=== PATIENT | female | born 1975 ===

== ENCOUNTER 2017-10-31 20:59 | Emergency (ER) | payer OTHER ==
[2017-10-31 21:44] VITALS: BMI 27.4
[2017-10-31 21:49] VITALS: TEMP 98.7
[2017-10-31 21:51] VITALS: BP 142/94; O2SAT 98
--- NOTE | 2017-10-31 22:22 | ED PDOC ---
Arrival/HPI - General Chief Complaint: Trauma Time Seen by Provider: 10/31/17 22:04 Historian: Patient - History of Present Illness Narrative History of Present Illness (Text): 10/31/17 22:16 A 41 year old female, with no significant past medical history, present to the emergency department for further evaluation s/p mechanical fall. Patient states that she [place] into [place] after falling through the cellar doors on the sidewalk about 1 hour ago. She notes that she hit her nose and left correa. The patient denies any loss of consciousness. Patient reports that she is not on any blood thinners. Patient has a cut across her nose and left eyebrow. Patient complaints of a mild headache. She notes that her last tetanus shot was 3 years ago. The patient denies fevers, chills, dizziness, sore throat, cough, chest pain, shortness of breath, dyspnea on exertion, abdominal pain, nausea, vomiting, diarrhea, neck/back pain, urinary/bowel changes or any other complaint. PMD: Dr. Zulma Hyman Time/Duration: 1 hour Symptom Onset: Sudden Symptom Course: Unchanged Activities at Onset: Rest, Light Context: Walking Past Medical History - Provider Review Nursing Documentation Reviewed: Yes - Infectious Disease Hx of Infectious Diseases: None - Tetanus Immunization Tetanus Immunization: Unknown - Cardiac Hx Cardiac Disorders: No - Psychiatric Hx Psychophysiologic Disorder: No Hx Substance Use: No - Past Surgical History Past Surgical History: No Previous - Anesthesia Hx Anesthesia: No - Suicidal Assessment Feels Threatened In Home Enviroment: No Family/Social History - Physician Review Nursing Documentation Reviewed: Yes Family/Social History: No Known Family HX Smoking Status: Never Smoked Hx Alcohol Use: No Hx Substance Use: No Hx Substance Use Treatment: No Allergies/Home Meds Allergies/Adverse Reactions: Allergies No Known Allergies Allergy (Verified 10/31/17 21:44) Review of Systems - Physician Review All systems were reviewed & negative as marked: Yes - Review of Systems Constitutional: absent: Fevers Respiratory: absent: SOB, Cough Cardiovascular: absent: Chest Pain, [place] Gastrointestinal: absent: Abdominal Pain, Stool Changes, Diarrhea, Nausea, Vomiting Genitourinary Female: absent: Urine Output Changes Musculoskeletal: absent: Back Pain, Neck Pain Skin: Laceration (Lacerations to the left eyebrow and nose) Neurological: Headache. absent: Dizziness Physical Exam Vital Signs Reviewed: Yes Vital Signs Temp Pulse Resp BP Pulse Ox 11/01/17 00:40 74 18 98 10/31/17 21:50 80 20 142/94 H 98 10/31/17 21:45 98.7 F 80 20 99 Temperature: Afebrile Blood Pressure: Hypertensive Pulse: Regular Respiratory Rate: Normal Appearance: Positive for: Well-Appearing, Non-Toxic, Comfortable Pain Distress: None Mental Status: Positive for: Alert and Oriented X 3 - Systems Exam Head: Present: Atraumatic, Normocephalic, Laceration (0.5 cm laceration to the left eyebrow.) Pupils: Present: PERRL Extroacular Muscles: Present: EOMI Conjunctiva: Present: Normal Mouth: Present: Moist Mucous Membranes Nose (External): Present: Laceration (2.5 cm laceration to the bridge of nose- horizontally.) Neck: Present: Normal Range of Motion Respiratory/Chest: Present: Clear to Auscultation, Good Air Exchange. No: Respiratory Distress, Accessory Muscle Use Cardiovascular: Present: Regular Rate and Rhythm, Normal S1, S2. No: Murmurs Abdomen: No: Tenderness, Distention, Peritoneal Signs Back: Present: Normal Inspection Upper Extremity: Present: Normal Inspection. No: Cyanosis, Edema Lower Extremity: Present: Normal Inspection, Neurovascularly Intact (Good neurovascular status distally. ), Other (1 cm laceration to the left mid correa ) . No: Edema Neurological: Present: GCS=15, CN II-XII Intact, Speech Normal Skin: Present: Warm, Dry, Normal Color. No: Rashes Psychiatric: Present: Alert, Oriented x 3, Normal Insight, Normal Concentration Medical Decision Making ED Course and Treatment: 10/31/17 22:26 Impression: A 41 year old female, tetanus show up to date, presents to the emergency department for further evaluation s/p mechanical fall sustaining lacerations to the nose, left eyebrow, and left correa. No indication for orbital fracture given EOMI. Given lacerations, Head CT ordered and Left Correa X- ray. No indication for compartment syndrome given soft compartments and good neurovascular status distally. Plan: -- Head CT -- Left Tibia Fibula -- Tylenol -- Reassess and disposition Prior Visits: Notes and results from previous visits were reviewed. Progress Notes: 10/31/17 23:14: Left Tibia Fibula read and interpreted by me shows no acute changes. CT Head Without Intravenous Contrast Dictated and Authenticated by: Patrick Whitmore MD 10/31/2017 10:55 PM Eastern Time ([place] & [place]) IMPRESSION: No acute intracranial pathology or traumatic injury. 10/31/17 23:15 On reevaluation the patient feels better and is in no acute distress. I have discussed the results and plan with the patient, who expresses understanding. Patient given the opportunity to ask question, all questions were answered and there is agreement with the plan to discharge the patient home. Patient is stable for discharge. Patient was instructed to follow up with physician/clinic in 1-2 days or return if symptoms persist/worsen or new concerning symptoms arise. PROCEDURE: LACERATION REPAIR Performed by the emergency provider Location: Left eyebrow Length: 0.5 cm Description: clean wound edges, no foreign bodies Distal CMS: Normal. No deficits. Neurovascularly intact. Anesthesia: Lidocaine 1% Preparation: The wound was cleaned with NS. The area was prepped and draped in the usual sterile fashion. Exploration: The wound was explored and no foreign bodies were found. Procedure: The wound was closed with 5-O prolene. There was good approximation. In total, 1 was used. Post-Procedure: Good closure and hemostasis. The patient tolerated the procedure well and there were no complications. CSM remains intact. Post procedure dressing applied. PROCEDURE: LACERATION REPAIR Performed by the emergency provider Location: Nose Length: 2.5 cm Description: clean wound edges, no foreign bodies Distal CMS: Normal. No deficits. Neurovascularly intact. Anesthesia: Lidocaine 1% Preparation: The wound was cleaned with NS. The area was prepped and draped in the usual sterile fashion. Exploration: The wound was explored and no foreign bodies were found. Procedure: The wound was closed with 5- O prolene. There was good approximation. In total, 5 were used. Post-Procedure: Good closure and hemostasis. The patient tolerated the procedure well and there were no complications. CSM remains intact. Post procedure dressing applied. PROCEDURE: LACERATION REPAIR Performed by the emergency provider Location: Left mid- correa Length: 1 cm Description: clean wound edges, no foreign bodies Distal CMS: Normal. No deficits. Neurovascularly intact. Anesthesia: Lidocaine 1% Preparation: The wound was cleaned with NS. The area was prepped and draped in the usual sterile fashion. Exploration: The wound was explored and no foreign bodies were found. Procedure: The wound was closed with 5- O prolene. There was good approximation. In total, 1 was used. Post-Procedure: Good closure and hemostasis. The patient tolerated the procedure well and there were no complications. CSM remains intact. Post procedure dressing applied. 11/01/17 01:08 On reevaluation the patient feels better and is in no acute distress. I have discussed the results and plan with the patient, who expresses understanding. Patient given the opportunity to ask question, all questions were answered and there is agreement with the plan to discharge the patient home. Patient is stable for discharge. Patient was instructed to follow up with physician/clinic in 1-2 days or return if symptoms persist/worsen or new concerning symptoms arise. - RAD Interpretation Radiology Orders: 10/31/17 22:10 HEAD W/O CONTRAST [CT] Stat TIBIA FIBULA LEFT [RAD] Stat - Medication Orders Current Medication Orders: Discontinued Medications Acetaminophen (Tylenol 325mg Tab) 650 mg PO STAT STA Stop: 10/31/17 22:12 Last Admin: 10/31/17 22:34 Dose: 650 mg Lidocaine HCl (Lidocaine 1% (20ml)) 1 ml INFIL STAT STA Stop: 10/31/17 22:40 - Scribe Statement The provider has reviewed the documentation as recorded by the Scribe Riri Hoskins Provider Scribe Attestation: All medical record entries made by the Scribe were at my direction and personally dictated by me. I have reviewed the chart and agree that the record accurately reflects my personal performance of the history, physical exam, medical decision making, and the department course for this patient. I have also personally directed, reviewed, and agree with the discharge instructions and disposition. Disposition/Present on Arrival - Present on Arrival Any Indicators Present on Arrival: No History of DVT/PE: No History of Uncontrolled Diabetes: No Urinary Catheter: No History of Decub. Ulcer: No History Surgical Site Infection Following: None - Disposition Have Diagnosis and Disposition been Completed?: Yes Diagnosis: Facial laceration, Fall, Head trauma, Laceration Disposition: HOME/ ROUTINE Disposition Time: 23:14 Condition: GOOD Discharge Instructions (ExitCare): Laceration Repair, Preventing Falls in the Older Adult, Laceration Repair With Stitches (DC) Print Language: SYRIAN Additional Instructions: COME BACK OR SEE YOUR PRIMARY CARE DOCTOR TO REMOVE STICHES IN 7 days LARRY BALLESTEROS, thank you for letting us take care of you today. Your provider was Naun Jefferson and you were treated for NOSE/LEG INJURY. The emergency medical care you received today was directed at your acute symptoms. If you were prescribed any medication, please fill it and take as directed. It may take several days for your symptoms to resolve. Return to the Emergency Department if your symptoms worsen, do not improve, or if you have any other problems. Please contact your doctor or call one of the physicians/clinics you have been referred to that are listed on the Patient Visit Information form that is included in your discharge packet. Bring any paperwork you were given at discharge with you along with any medications you are taking to your follow up visit. Our treatment cannot replace ongoing medical care by a primary care provider outside of the emergency department. Thank you for allowing the [facility] team to be part of your care today. If you had an X-Ray or CT scan: A Radiologist will review the ED reading if any change in treatment is needed we will contact you. If you had a blood, urine, or wound culture: It will take several days for the results, if any change in treatment is needed we will contact you. If you had an STI test: It will take 48 hours for the results. Please call after 1 week if you have not heard back. Prescriptions: Cephalexin [cephalexin] 500 mg PO Q6H 5 Days #20 cap Referrals: Wilson Hyman MD [Primary Care Provider] - Follow up with primary Forms: [employer] (Italian)
[2017-10-31] MEDS ORDERED: Lidocaine 1% Inj (20ml) INFIL STA (22:39)
[2017-11-01 00:41] VITALS: PULSE 74; RESP 18
--- NOTE | 2017-11-01 08:08 | RAD ---
Date of service: 10/31/2017 PROCEDURE: Radiographs of the left tibia and fibula. HISTORY: Fall COMPARISON: None available. TECHNIQUE: Frontal and lateral views obtained. FINDINGS: BONES: Bone alignment and mineralization are normal. There is no acute displaced fracture or bone destruction. JOINT SPACES: Unremarkable. OTHER FINDINGS: None. IMPRESSION: No acute fracture or dislocation.
--- NOTE | 2017-11-01 09:08 | CT ---
Date of service: 10/31/2017 PROCEDURE: CT HEAD WITHOUT CONTRAST. HISTORY: Fall COMPARISON: 07/23/2014. TECHNIQUE: Axial computed tomography images were obtained through the head/brain without intravenous contrast. Radiation dose: Total exam DLP = 742.09 mGy-cm. This CT exam was performed using one or more of the following dose reduction techniques: Automated exposure control, adjustment of the mA and/or kV according to patient size, and/or use of iterative reconstruction technique. FINDINGS: HEMORRHAGE: No intracranial hemorrhage. BRAIN: Martinez-white matter differentiation is preserved. There is no mass, mass effect or abnormal extra-axial fluid collection. There is no territorial infarction. The midline sagittal structures are normal. VENTRICLES: The ventricles are normal in size, shape and configuration. CALVARIUM: There is no calvarial fracture or extracranial soft tissue swelling. PARANASAL SINUSES: Predominantly clear. MASTOID AIR CELLS: Predominantly clear. OTHER FINDINGS: None. IMPRESSION: No acute intracranial abnormality. A preliminary report was provided by [facility].
== END 2017-11-01 00:40 | disposition home or self-care (01) ==
LOC: ED 20:59
DX: S01.21XA Laceration without foreign body of nose, initial encounter (principal); S81.812A Laceration without foreign body, left lower leg, initial encounter; W17.89XA Other fall from one level to another, initial encounter; Y92.480 Sidewalk as the place of occurrence of the external cause

== ENCOUNTER 2017-11-07 11:04 | Emergency (ER) | payer OTHER ==
[2017-11-07 11:06] VITALS: BMI 27.4
[2017-11-07 11:16] VITALS: TEMP 98.4; O2SAT 97
--- NOTE | 2017-11-07 12:20 | ED PDOC ---
Arrival/HPI - General Chief Complaint: Suture/Staple Removal Time Seen by Provider: 11/07/17 11:27 Historian: Patient - History of Present Illness Narrative History of Present Illness (Text): 11/07/17 12:22 41yr old female presents today for suture removal. Patient states 7 days ago she fell injuring the face and left leg. She denies headaches dizziness or weakness. Denies fevers or chills. No nausea vomiting. pt denies any pain. pt states she followed up with ENT specialist. no other complaints. denies redness , swelling, or purulent discharge. Past Medical History - Provider Review Nursing Documentation Reviewed: Yes - Travel History Have you recently traveled outside [place] w/in the past 3 mons?: No - Infectious Disease Hx of Infectious Diseases: None - Tetanus Immunization Tetanus Immunization: Unknown - Cardiac Hx Cardiac Disorders: No - Psychiatric Hx Psychophysiologic Disorder: No Hx Substance Use: No - Past Surgical History Past Surgical History: No Previous - Anesthesia Hx Anesthesia: No - Suicidal Assessment Feels Threatened In Home Enviroment: No Family/Social History - Physician Review Nursing Documentation Reviewed: Yes Family/Social History: Unknown Family HX Smoking Status: Never Smoked Hx Alcohol Use: No Hx Substance Use: No Hx Substance Use Treatment: No Allergies/Home Meds Allergies/Adverse Reactions: Allergies No Known Allergies Allergy (Verified 11/07/17 11:15) Review of Systems - Review of Systems Constitutional: absent: Fatigue, Fevers Respiratory: absent: SOB, Cough Cardiovascular: absent: Chest Pain, Palpitations Gastrointestinal: absent: Abdominal Pain, Nausea, Vomiting Musculoskeletal: absent: Arthralgias, Back Pain, Neck Pain Skin: Laceration Neurological: absent: Headache, Dizziness Psychiatric: absent: Anxiety, Depression Physical Exam Vital Signs Reviewed: Yes Vital Signs Temp Pulse Resp BP Pulse Ox 11/07/17 11:16 98.4 F 94 H 17 124/77 97 11/07/17 11:15 98.4 F 94 H 17 124/77 97 Temperature: Afebrile Blood Pressure: Normal Pulse: Regular Respiratory Rate: Normal Appearance: Positive for: Well-Appearing, Non-Toxic, Comfortable Pain Distress: None Mental Status: Positive for: Alert and Oriented X 3 - Systems Exam Head: Present: Laceration (healing laceration to nose with [address] healing laceration to upper eye lid with [address] ) Mouth: Present: Moist Mucous Membranes Neck: Present: Normal Range of Motion Respiratory/Chest: Present: Clear to Auscultation, Good Air Exchange. No: Respiratory Distress, Accessory Muscle Use Cardiovascular: Present: Regular Rate and Rhythm, Normal S1, S2. No: Murmurs Lower Extremity: Present: Other ([address] over anterior lower leg with + ecchymosis; no erythema; no edema. ) Medical Decision Making ED Course and Treatment: 11/07/17 12:29 Patient is nontoxic well-appearing in no distress. Vital signs are stable. Suture removal: 7 total sutures removed (5 from nose, 1 from left upper eyelid , 1 from left lower leg) Wound healing well without signs of infection I advised the patient to keep the wound clean and dry apply bacitracin twice daily and return if symptoms worsen persist or if new symptoms develop Patient verbalizes understanding of discharge instructions and need for immediate followup. all aspects of this case were discussed the attending of record. Impression: suture removal keep wound clean and dry apply bacitracin twice daily follow up with the ENT specialist within the next 2 days Follow up with the primary care physician within the next 2 days Return if symptoms worsen,persist or if new concerning symptoms develop. Disposition/Present on Arrival - Present on Arrival Any Indicators Present on Arrival: No History of DVT/PE: No History of Uncontrolled Diabetes: No Urinary Catheter: No History of Decub. Ulcer: No History Surgical Site Infection Following: None - Disposition Have Diagnosis and Disposition been Completed?: Yes Diagnosis: Visit for suture removal Disposition: HOME/ ROUTINE Disposition Time: 12:16 Patient Plan: Discharge Condition: GOOD Discharge Instructions (ExitCare): Stitches Removal Additional Instructions: keep wound clean and dry apply bacitracin twice daily follow up with the ENT specialist within the next 2 days Follow up with the primary care physician within the next 2 days Return if symptoms worsen,persist or if new concerning symptoms develop. Referrals: Wilson Hyman MD [Primary Care Provider] - Follow up with primary Willian Uriarte DO [Staff Provider] - Follow up with primary
[2017-11-07 13:11] VITALS: BP 118/75; PULSE 78; RESP 16
== END 2017-11-07 12:35 | disposition home or self-care (01) ==
LOC: ED 11:04
DX: Z48.02 Encounter for removal of sutures (principal)

== ENCOUNTER 2018-07-11 09:17 | Outpatient (CLI) | payer OTHER | END 2018-07-11 09:18 | disposition home or self-care (01) | LOC: LAB 09:17 ==